=== PATIENT | male | born 1995 | race Caucasian/White ===

== ENCOUNTER 2020-08-11 19:45 | Emergency (ER) | payer BC ==
[~2020-08-11] VITALS: Ht 165.1 cm; Wt 77.1 kg
--- NOTE | 2020-08-11 20:15 | NUR ---
BIBS FROM HOME TO ER BED 7. AAOX4. NOT IN RESP DISTRESS. AMBULATORY ON STEADY GAIT. 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 PT RATES HIS PAIN 6/10. MD WAS AT THE BEDSIDE FOR EVAL. ORDERS RECEIVED, NOTED AND CARRIED OUT. URINE WAS COLLECTED AND SENT TO LAB
[2020-08-11 21:44] LABS: BILIRUBIN,URINE Negative (NEGATIVE); COLOR,URINE YELLOW (YELLOW); LEUKOCYTE ESTERASE ,URINE Negative (NEGATIVE); NITRITE, URINE Negative (NEGATIVE); PROTEIN,URINE Negative (NEGATIVE); UGLUCOSE Negative (NEGATIVE); UROBILINOGEN,URINE 0.2 EU/dL (0.2)
--- NOTE | 2020-08-11 22:06 | NUR ---
Patient discharged to home in stable condition. Written and verbal after care instructions given. Patient verbalizes understanding of instruction. Pt ambulatory with a steady gait
[2020-08-11 22:07] VITALS: BP 123/80
== END 2020-08-11 22:08 | disposition home or self-care (01) ==
LOC: ER 19:54
DX: N43.2 Other hydrocele (principal); F10.10 Alcohol abuse, uncomplicated; Y90.9 Presence of alcohol in blood, level not specified; Z60.2 Problems related to living alone
CPT/HCPCS: 76870-TC